=== PATIENT | female | born 1960 | race Two or more races ===

== ENCOUNTER 2018-09-08 12:43 | Emergency (ER) | payer OTHER ==
[~2018-09-08] VITALS: Ht 170.2 cm; Wt 88.5 kg
[2018-09-08] MEDS ORDERED: ALBUTEROL0.63 MG/3 (13:42)
== END 2018-09-08 17:36 | disposition home or self-care (01) ==
LOC: ER 12:43
DX: M75.52 Bursitis of left shoulder (principal); M25.512 Pain in left shoulder

== ENCOUNTER 2018-09-15 15:32 | Emergency (ER) | payer OTHER ==
[~2018-09-15] VITALS: Ht 170.2 cm; Wt 88.5 kg
[~2018-09-15 15:32] MED LIST: ALBUTEROL0.63 MG/3
== END 2018-09-15 19:59 | disposition home or self-care (01) ==
LOC: ER 15:32
DX: M54.89 Other dorsalgia (principal)

== ENCOUNTER → 2025-05-14 | Emergency (ER) | payer OTHER ==
[~2025-05-14] VITALS: Ht 170.2 cm; Wt 96.2 kg
[~2025-05-14] MED LIST changes: +ALBUTEROL SULFATE 3 ML/2.5 MG AMPUL.NEB IH ONE; +BENZONATATE200 M1 PO; +IPRAT-ALBUT 0.5-3 ML IH; +IPRATROPIUM/ALBUTEROL SULFATE 3 ML AMPUL.NEB IH ONE; +LEVALBUTER0.63 MG/3 IH; +METHYLPREDNISOLONE SOD SUCC 125 MG VIAL IV ONE; +METHYLPREDNISOLONE SOD SUCC 125 MG VIAL ONE; +OSEL75CA PO; +PEPCID AC20 MG PO; +PREDNISONE50 M1 PO
[2025-05-14 12:34] LABS: BASO % 0.4 % (0.1-1.2); EOS # 0.14 (0.04-0.54); EOS % 1.8 % (0.7-7.0); LYMPH # 0.24 (1.18-3.74); LYMPH % 3.1 % (19.3-53.1); MEAN PLATELET VOLUME 9.40 fl (9.4-12.4); MONO # 0.40 (0.24-0.82); MONO % 5.2 % (4.7-12.5); NEUT # 6.85 (1.56-6.13); NEUT % 89.1 % (34.0-71.1); RED CELL DISTRIBUTION WIDTH 15.2 % (11.6-14.4)
[2025-05-14 14:13] LABS: COVID-19 AG NEGATIVE (NEGATIVE)
== END | disposition home or self-care (01) ==
LOC: ER 11:19
PROVIDERS: Student in an Organized Health Care Education/Training Program
DX: J45.41 Moderate persistent asthma with (acute) exacerbation (principal); Z20.822 Contact with and (suspected) exposure to COVID-19

== ENCOUNTER 2025-05-16 04:52 | Emergency (ER) | payer OTHER ==
[~2025-05-16] VITALS: Ht 170.2 cm; Wt 96.2 kg
[~2025-05-16 04:52] MED LIST changes: -ALBUTEROL SULFATE 3 ML/2.5 MG AMPUL.NEB IH ONE; -IPRATROPIUM/ALBUTEROL SULFATE 3 ML AMPUL.NEB IH ONE; -LEVALBUTER0.63 MG/3 IH; -METHYLPREDNISOLONE SOD SUCC 125 MG VIAL IV ONE; -METHYLPREDNISOLONE SOD SUCC 125 MG VIAL ONE; -OSEL75CA PO; -PEPCID AC20 MG PO
[2025-05-16] MEDS ORDERED: METHYLPREDNISOLONE SOD SUCC 125 MG VIAL IM STA (06:33)
[2025-05-16] MEDS ORDERED: ALBUTEROL SULFATE 3 ML/2.5 MG AMPUL.NEB IH SCH (06:45)
[2025-05-16] MEDS ORDERED: METHYLPREDNISOLONE SOD SUCC 40 MG VIAL ONE (07:18)
[2025-05-16 08:31] LABS: BASO % 0.6 % (0.1-1.2); EOS # 0.00 (0.04-0.54); EOS % 0.0 % (0.7-7.0); LYMPH # 0.82 (1.18-3.74); LYMPH % 15.3 % (19.3-53.1); MEAN PLATELET VOLUME 10.10 fl (9.4-12.4); MONO # 0.41 (0.24-0.82); MONO % 7.6 % (4.7-12.5); NEUT # 4.10 (1.56-6.13); NEUT % 76.3 % (34.0-71.1); RED CELL DISTRIBUTION WIDTH 15.4 % (11.6-14.4)
[2025-05-16 08:35] LABS: COVID-19 AG NEGATIVE (NEGATIVE)
[2025-05-16 08:51] LABS: ALT/SGPT 41.0 U/L (12-78); AST/SGOT 42.0 U/L (15-37); BILIRUBIN TOTAL 0.3 mg/dL (0.3-1.2); BUN CREA RATIO 16.0 (7.0-25.0); CREATININE SERUM 1.1 mg/dL (0.55-1.02); GFR 50.0; GLOBULINA 4.8 G/DL (2.4-3.5); GLUCOSE FASTING 88.0 mg/dL (65-100); OSMOLALITY SERUM 277.0 MOSM/KG (275-295)
[2025-05-16] MEDS ORDERED: LEVALBUTER0.63 MG/3 IH (10:24)
[2025-05-16] MEDS ORDERED: OSEL75CA PO (10:24)
[2025-05-16] MEDS ORDERED: PEPCID AC20 MG PO (10:24)
[2025-05-16] MEDS ORDERED: BENZONATATE200 M1 PO (10:24)
== END 2025-05-16 11:22 | disposition home or self-care (01) ==
LOC: ER 04:53
PROVIDERS: Physician Assistant Medical
DX: J10.1 Influenza due to other identified influenza virus with other respiratory manifestations (principal); Z20.822 Contact with and (suspected) exposure to COVID-19